=== PATIENT | male | born 1985 | race Two or more races ===

== ENCOUNTER 2020-08-29 20:35 | Emergency (ER) | payer MEDICARE, OTHER ==
[~2020-08-29] VITALS: Ht 175.3 cm; Wt 86.2 kg
[2020-08-29 20:35] VITALS: BP 123/78
[2020-08-29] MEDS ORDERED: SODIUM CHLORIDE 0.9% 1,000 ML IV ONE (23:30)
[2020-08-29] MEDS ORDERED: KETOROLAC TROMETH 30 MG/ML 1ML VIAL IV ONE (23:30)
== END 2020-08-30 00:59 | disposition home or self-care (01) ==
LOC: EDBD 20:35 → ER 20:39
DX: R25.2 Cramp and spasm (principal); M79.604 Pain in right leg; E86.0 Dehydration
CPT/HCPCS: 96361; 96374; 99283; J1885; J7030